=== PATIENT | female | born 1995 | race Caucasian/White ===

== ENCOUNTER 2020-04-07 08:43 | Outpatient (CLI) | payer BC, SELFPAY ==
--- NOTE | ~2020-04-07 | MR_ITS ---
EXAMINATION: MR brain/brain stem wo con DATE: 04/07/2020 09:11 INDICATION: New dated persistent headaches. TECHNIQUE: Magnetic resonance imaging (MRI) of the brain and brainstem was performed without intraven ous contrast. Sequences included sagittal and axial T1-weighted FSE, axial diffusion-weighted FS EPI, axial T2*-weighted GRE, axial T2-weighted FLAIR Propeller, and axial T2-weighted Propeller. Apparent diffusion coefficient (ADC) maps were created. COMPARISON: None. FINDINGS: There is no intracranial hemorrhage, acute infarction, or abnormal intracranial mass lesion . The ventricles are normal in size. The paranasal sinuses are clear. The orbits are normal. The mast oid air cells are normal. IMPRESSION: 1. Normal brain. Reviewed, dictated and finalized at location A. ENT PARTS CUTTER MACHINE IMPRESSION: 1. Normal brain.
== END 2020-04-07 08:44 ==
PROVIDERS: PCP Family Medicine; Visit Provider Family Medicine
DX: G44.52 New daily persistent headache (NDPH) (principal)
CPT/HCPCS: 70551

== ENCOUNTER 2020-04-14 11:28 | Outpatient (CLI) | payer BC, SELFPAY ==
--- NOTE | ~2020-04-14 | XR_ITS ---
XR thoracic spine 2V DATE: 04/14/2020 12:09 INDICATION: Thoracic pain TECHNIQUE: Standing AP, lateral and swimmer views COMPARISON: None FINDINGS: Minimal levoscoliosis of the thoracic spine. No fracture or bone destruction. The thoracic pedicles are intact. Thoracic interspaces are preserved. No paraspinal soft tissue thickening. IMPRESSION: Minimal levoscoliosis; otherwise negative Reviewed, dictated and finalized at location B. CTOR OF RETENTION
--- NOTE | ~2020-04-14 | XR_ITS ---
XR lumbar spine 2-3V DATE: 04/14/2020 12:09 INDICATION: Low back pain TECHNIQUE: Standing AP and lateral and coned lateral lumbosacral views COMPARISON: None FINDINGS: Mild levoscoliosis of thoracolumbar spine. No fracture or bone destruction or spondylolisthesis. The lumbar pedicles are intact. Lumbar and lumb osacral interspaces are well preserved. The included portions of the sacroiliac joints appear normal. IMPRESSION: Mild levoscoliosis; otherwise negative Reviewed, dictated and finalized at location B. R GIFTS MANAGER
--- NOTE | ~2020-04-14 | XR_ITS ---
XR_CERV2-3V_CR DATE: 04/14/2020 12:09 INDICATION: Migraine headaches, neck pain. Thoracic and lumbar spine pain. Bilateral sacroiliac pain. TECHNIQUE: Standing AP, lateral, open-mouth views COMPARISON: None FINDINGS: There is reversal of cervical curvature. C1 and C2 are normally aligned and the odontoid process is intact. No fracture or dislocation or lock ed facet or prevertebral soft tissue swelling. Cervical interspaces are well preserved. IMPRESSION: Reversal of cervical curvature Reviewed, dictated and finalized at Location A. Reviewed, dictated and finalized at location B. ICAL CARE CNS
--- NOTE | ~2020-04-14 | XR_ITS ---
XR pelvis 1-2V DATE: 04/14/2020 12:09 INDICATION: Bilateral sacroiliac pain TECHNIQUE: Standing AP pelvis view COMPARISON: None FINDINGS: No pelvic fracture or bone destruction. The pubic symphysis and sacral iliac joints appear normal. Hip joint spaces are symmetric and well preserved. No fracture or dislocation is noted at eit her hip. Mild levoscoliosis of the lumbar spine. IMPRESSION: Negative pelvis Reviewed, dictated and finalized at location B. ERENCE SERVICES DIRECTOR IMPRESSION: Negative pelvis
== END 2020-04-14 11:29 ==
PROVIDERS: Visit Provider Chiropractor
DX: M54.2 Cervicalgia (principal); G43.909 Migraine, unspecified, not intractable, without status migrainosus; M54.5 Low back pain; M41.86 Other forms of scoliosis, lumbar region; M41.84 Other forms of scoliosis, thoracic region; M53.82 Other specified dorsopathies, cervical region
CPT/HCPCS: 72040; 72070; 72100; 72170

== ENCOUNTER 2020-05-20 23:00 | Emergency (ER) | payer SELFPAY ==
[2020-05-20 23:03] VITALS: BP 117/84; PULSE 108; RESP 18; TEMP 36.4; O2SAT 95
[2020-05-21] MEDS: LIDOCAINE HCL 1% LOCAL INJ 20 ML VIAL 10 ML INFILTRATE
--- NOTE | 2020-05-21 00:02 | ED.GENADULT ---
HPI - General Adult General Chief complaint: Skin/Abscess/Foreign Body Stated complaint: abscess - down there Time Seen by Provider: 05/20/20 23:21 History of Present Illness HPI narrative: Patient is a 24-year-old female who presents the emergency department with chief complaint of perineal abscess patient reports she had a 4-day history of swelling in the perineal body area patient reports that it is swollen tender and painful to touch. The patient notes she had a little bit of bloody drainage from the area patient denies fever denies chills Related Data Home Medications Medication Instructions Recorded Confirmed amitriptyline 05/20/20 nadolol 05/20/20 valacyclovir 05/20/20 Allergies Allergy/AdvReac Type Severity Reaction Status Date / Time No Known Allergies Allergy Verified 05/20/20 23:05 Review of Systems Review of Systems: Narrative: A 10 system review of systems was completed on the patient and is negative except for what is stated in the HPI. Nursing and ancillary documentation was reviewed. [facility] Social History Social History Gender identity (if verbalized by the patient): Female Sexual Orientation (if Verbalized by the Patient): Straight or Heterosexual Comments Patient denies past medical history Social history the patient smoke cigarettes Exam Narrative: Exam Narrative: GENERAL: Well-appearing, well-nourished, and in no acute distress. HEAD: Normocephalic, atraumatic. EYES: PERRLA and EOMI. ENT: Nares clear, no rhinorrhea or epistaxis. Mucous membranes moist. NECK: Supple. CHEST: Clear to auscultation. No respiratory distress. HEART: Regular rate and rhythm. No murmur heard. Normal peripheral pulses. ABDOMEN: Soft, nontender, nondistended, normal active bowel sounds. : There is an abscess present in the perineal body area EXTREMITIES: Normal range of motion. No edema. SKIN: Warm, dry, no rash. NEURO: No focal deficits. Alert and oriented x3. PSYCH: Normal mood and affect. Course Vital Signs Vital signs: Vital Signs Temperature 36.4 C 05/20/20 23:03 Pulse Rate 108 H 05/20/20 23:03 Respiratory Rate 18 05/20/20 23:03 Blood Pressure 117/84 05/20/20 23:03 Pulse Oximetry 95 05/20/20 23:03 Temperature 36.4 C 05/20/20 23:03 Pulse Rate 108 H 05/20/20 23:03 Respiratory Rate 18 05/20/20 23:03 Blood Pressure 117/84 05/20/20 23:03 Pulse Oximetry 95 05/20/20 23:03 Procedures Abscess I/D other: Date of Incision: 05/21/20 Time of Incision: 00:05 Local Anesthetic: lidocaine 1% Amount of anesthesia used (mL): 5 Technique: incised with #11 blade Amount of fluid expressed (mL): 5 Packing used?: none I&D Results: Pus and Blood Complications: pain Abcess I&D Additional Comments: A perineal body abscess was incised and drained using an 11 blade was approximately 5 mL of purulent material expressed from the wound Medical Decision Making Vital Signs Vital Signs: Vital Signs Temperature 36.4 C 05/20/20 23:03 Pulse Rate 108 H 05/20/20 23:03 Respiratory Rate 18 05/20/20 23:03 Blood Pressure 117/84 05/20/20 23:03 Pulse Oximetry 95 05/20/20 23:03 Temperature 36.4 C 05/20/20 23:03 Pulse Rate 108 H 05/20/20 23:03 Respiratory Rate 18 05/20/20 23:03 Blood Pressure 117/84 05/20/20 23:03 Pulse Oximetry 95 05/20/20 23:03 Discharge Plan Discharge Clinical Impression: Abscess Patient Disposition: Home, Self-Care Condition: Stable Instructions: Antibiotic Form, Abscess (ED), Sitz Bath (DC), Abscess Incision and Drainage (DC) Prescriptions: New clindamycin HCl 300 mg capsule 300 mg PO Q6H 7 Days Qty: 28 RF: 0 hydrocodone-acetaminophen 5-325 mg tablet 1 tablet PO Q6H PRN (Reason: pain) 3 Days Qty: 12 RF: 0 No Action valacyclovir 1 gram tablet RF: 0 amitriptyline 25 mg tablet RF: 0 nadolol 40 mg tablet
[2020-05-21] MEDS: CLINDAMYCIN HCL 150 MG CAP 300 MG PO (00:16)
[2020-05-21] MEDS: HYDROcodone/acetaminophen (*CRX) 5-325 MG TABLET 1 TAB PO (00:16)
== END 2020-05-21 00:24 | disposition home or self-care (01) ==
PROVIDERS: Emergency Provider Emergency Medicine; PCP Family Medicine
DX: K61.0 Anal abscess (principal); F17.210 Nicotine dependence, cigarettes, uncomplicated
CPT/HCPCS: 46050; 99283; A9270

== ENCOUNTER 2020-05-30 02:13 | Emergency (ER) | payer OTHER, SELFPAY ==
[2020-05-30 02:15] VITALS: BP 119/63; PULSE 100; RESP 16; TEMP 37.6; O2SAT 97
--- NOTE | 2020-05-30 02:42 | ED.NAVMDI ---
HPI - Nausea/Vomiting/Diarrhea General Chief complaint: Nausea/Vomiting/Diarrhea Stated complaint: n/v Time Seen by Provider: 05/30/20 02:30 Source: patient Mode of arrival: ambulatory Limitations: no limitations History of Present Illness HPI Narrative: Patient is a 24-year-old female complaining of nausea vomiting, epigastric pain and body aches after receiving the [employer] Covid shot yesterday. Patient states that her vomitus is nonbilious nonbloody. Patient denies any chest pain, shortness of breath, diarrhea, urinary symptoms, fever or chills. Associated abdominal pain: Yes Location of pain: diffuse Severity: moderate Quality: aching Exacerbating factors: none Relieving factors: none Related Data Home Medications Medication Instructions Recorded Confirmed amitriptyline 05/20/20 nadolol 05/20/20 valacyclovir 05/20/20 Allergies Allergy/AdvReac Type Severity Reaction Status Date / Time No Known Allergies Allergy Verified 05/20/20 23:05 Review of Systems Review of Systems: All systems reviewed & are unremarkable except as noted in HPI and below Constitutional: Constitutional: Denies chills, Denies excessive sweating, Denies fatigue, Denies fever(s), Denies headache(s), Denies lethargy, Denies malaise, Denies weakness and Denies weight loss Eyes: Eyes: Denies blurry vision, Denies change in vision and Denies loss of vision ENT: Denies dizziness, Denies ear discharge, Denies headache(s), Denies lip swelling, Denies epistaxis, Denies nasal congestion, Denies neck pain, Denies throat swelling and Denies tongue swelling Cardiovascular: Cardiovascular: Denies chest pain, Denies chest pain at rest, Denies chest pain with activity, Denies diaphoresis, Denies rapid heart rate, Denies edema, Denies irregular heart rhythm, Denies lightheadedness, Denies palpitations, Denies dyspnea and Denies dyspnea on exertion Respiratory: Respiratory: Denies chest congestion, Denies cough, Denies hemoptysis, Denies dyspnea and Denies dyspnea on exertion Gastrointestinal: Gastrointestinal: Denies melena, Denies hematochezia, Denies diarrhea and Denies hematemesis Musculoskeletal: Musculoskeletal: Denies abnormal gait, Denies deformity, Denies joint swelling, Denies limited range of motion, Denies neck pain and Denies numbness Neurologic: Denies Abnormal speech present, Denies abnormal gait, Denies confusion, Denies dizziness, Denies headache(s), Denies focal weakness, Denies loss of vision, Denies numbness, Denies Other visual disturbances, Denies Sensory deficit (Neuro) and Denies weakness Psychiatric: Psychiatric: Denies confusion, Denies depression, Denies auditory hallucinations, Denies homicidal ideation and Denies suicidal ideation Endocrine: Endocrine: Denies cold intolerance, Denies excessive sweating, Denies fatigue, Denies heat intolerance and Denies palpitations Hematologic/Lymphatic: Hematologic/Lymphatic: Denies easy bleeding and Denies easy bruising Allergic/Immunologic: Allergic/Immunologic: Denies lip swelling, Denies throat swelling and Denies tongue swelling PMFSH Social History Social History Gender identity (if verbalized by the patient): Female Comments Past medical history: None Family history: Noncontributory Social history: Non-smoker no EtOH or drug use Exam Const: General: cooperative, healthy appearing, comfortable, no acute distress, well developed, alert and awake; No confusion Orientation/consciousness: oriented to person, oriented to place, oriented to time, patient oriented x3 and No confusion Limitations: no limitations HENMT: Head: normal to inspection, normocephalic and atraumatic Ears: hearing grossly normal bilaterally, TM normal on the right and TM normal on the left General nose exam: Normal external nose present, Normal nares present and No nasal discharge present Face and sinus: normal facial exam Mouth: Yes Normal o
[2020-05-30] MEDS: ONDANSETRON INJ 4 MG/2 ML VIAL IV PUSH (02:44)
[2020-05-30] MEDS: SODIUM CHLORIDE 0.9% IV 1,000 ML 999 ML IV CONT (02:44)
[2020-05-30 03:00] LABS: Basophils Percent Auto 0.1 % (0.2-1.2); Eosinophils Percent Auto 0.1 % (0-4.4); Hematocrit 36.3 % (37.0-47.0); Immature Granulocyte Absolute 0.03 K/mm3 (0.00-0.031); Immature Granulocyte Percent A 0.4 % (0-0.5); Lymphocytes Absolute Auto 0.46 K/mm3 (0.9-3.2); Lymphocytes Percent Auto 6.4 % (18.3-44.2); Mean Corpuscular HGB Conc 35.8 g/dl (32-36); Mean Corpuscular Hemoglobin 30.6 pg (26-34); Mean Corpuscular Volume 85.4 fl (80-100); Mean Platelet Volume 9.9 fl (7.4-10.4); Monocytes Absolute Auto 0.5 K/mm3 (0.1-0.6); Monocytes Percent Auto 6.9 % (2.6-8.5); Neutrophils Absolute Auto 6.2 K/mm3 (1.3-6.7); Neutrophils Percent Auto 86.1 % (45.5-73.1); Platelet Count Result 173 k/mm3 (150-375); Red Blood Count 4.25 M/mm3 (4.2-5.4); Red Cell Distribution Width 11.7 % (11.5-14.5); White Blood Count 7.2 K/mm3 (4.5-10.0)
[2020-05-30 03:15] LABS: Alanine Aminotransferase 33 U/L (4-35); Albumin Level 4.3 g/dL (3.5-5.1); Alkaline Phosphatase 49 U/L (38-126); Anion Gap 10 mmol/L (8-16); Aspartate Amino Transferase 37 U/L (14-36); Bilirubin,Total 1.1 mg/dL (0.2-1.3); Blood Urea Nitrogen 7 mg/dL (7-17); Calcium 8.7 mg/dL (8.4-10.2); Carbon Dioxide 21 mmol/L (22-30); Chloride 103 mmol/L (98-107); Estimated CRCL calculation 124 ml/min; Estimated Glomerular Filt Rate > 60; Glucose 101 mg/dL (65-105); Lipase 73 U/L (23-300); Potassium 3.7 mmol/L (3.4-5.0); Sodium 134 mmol/L (137-145)
[2020-05-30 03:21] LABS: Add Urine Microscopic? YES; Appearance Urine Cloudy (Clear); Bilirubin Urine Negative (Negative); Blood Urine Negative (Negative); Color Urine Yellow (Yellow); Glucose Urine UA Negative (Negative); Ketones Urine Negative (Negative); Leukocyte Esterase Ur Negative LEU/UL (Negative); Mucus Urine Moderate /lpf; Nitrate Urine Negative (Negative); Protein Urine 1+ mg/dL (Negative); Specific Grav Ur 1.024 (1.001-1.035); Squamous Epithelial Cell Urine Few /hpf (Few); Urobilinogen Urine Negative mg/dL (<2.0); WBC Urine 0-3 /hpf
[2020-05-30 04:14] VITALS: BP 117/66; PULSE 89; RESP 18; O2SAT 99
[2020-05-30] MEDS: PROMETHAZINE HCL 25 MG/ML AMPUL 12.5 MG IV PUSH (04:53)
[2020-05-30] MEDS: SODIUM CHLORIDE 0.9% IV 50 ML 200 ML (04:53)
[2020-05-30 05:32] VITALS: BP 118/64; PULSE 69; RESP 18; O2SAT 98
== END 2020-05-30 05:57 | disposition home or self-care (01) ==
PROVIDERS: Emergency Provider Emergency Medicine; PCP Family Medicine
DX: O21.0 Mild hyperemesis gravidarum (principal); Z3A.00 Weeks of gestation of pregnancy not specified
CPT/HCPCS: 36415; 80053; 81001; 81025; 83690; 84702; 85025; 96361; 96374; 96375; 99284; J2405; J2550; J7030

== ENCOUNTER 2020-12-14 12:16 | Emergency (ER) | payer OTHER, SELFPAY ==
[2020-12-14 12:29] VITALS: BP 122/68; PULSE 68; RESP 18; TEMP 36.6; O2SAT 100
--- NOTE | 2020-12-14 12:39 | ED.GENADULT ---
HPI - General Adult General Chief complaint: Urogenital-Female Stated complaint: UTI Source: patient Mode of arrival: ambulatory Limitations: no limitations History of Present Illness HPI narrative: 25 y/o female. PMHx None reported. Presents to [facility] today with acute complaints of urinary frequency and dysuria for the past 48 hours. Client tells me she has had infrequent UTI's historically, and her manifestations are similar. Denies fever. No abdominal pain, flank pain, N/V, hematuria. No pelvic pain or vaginal discharge. She has not yet sought out medical evaluation unitl now, today. She is without additional acute c/o illness upon PE. Related Data Home Medications Medication Instructions Recorded Confirmed etonogestrel [Nexplanon] 1 implant SUBDERMAL ONCE 12/14/20 12/14/20 Allergies Allergy/AdvReac Type Severity Reaction Status Date / Time No Known Allergies Allergy Verified 12/14/20 12:38 Review of Systems Review of Systems: CONSTITUTIONAL: Denies fever, chills, sweats. EYES: Denies visual changes, redness, discharge. ENT: Denies rhinorrhea, congestion, sore throat, otalgia. CARDIOVASCULAR: Denies chest pain, palpitations, edema. RESPIRATORY: Denies dyspnea, wheezing, cough GASTROINTESTINAL: Denies abdominal pain, nausea, vomiting, diarrhea. GENITOURINARY: Positive frequency & dysuria. No hematuria, abnormal discharge SKIN: Denies rash or itching. MUSCULOSKELETAL: Denies acute back pain, joint pain, or myalgia. NEUROLOGIC: Denies numbness, or focal weakness. PSYCHIATRIC: Denies anxiety or depression. All systems reviewed & are unremarkable except as noted in HPI and below PMFSH Social History Social History Gender identity (if verbalized by the patient): Female Sexual Orientation (if Verbalized by the Patient): Straight or Heterosexual Exam Narrative: GENERAL: This is a well-nourished, well-developed adult, in no apparent distress. HEAD: normocephalic, atraumatic. EYES: PERRL. Sclera clear/white. EARS: External ears normal. NOSE: External nose normal. THROAT: Mucous membranes moist. NECK: Neck supple. CARDIOVASCULAR: Regular rate and rhythm. RESPIRATORY: Clear to auscultation. Breath sounds equal bilaterally. GASTROINTESTINAL: Abdomen soft, non-tender, nondistended. Bowel sounds are active. No guarding. No CVA tenderness. SKIN: warm, intact. NEURO: Alert, active, and age appropriate. No focal neurologic deficits. Course Vital Signs Vital signs: Vital Signs Temperature 36.6 C 12/14/20 12:29 Pulse Rate 68 12/14/20 12:29 Respiratory Rate 18 12/14/20 12:29 Blood Pressure 122/68 12/14/20 12:29 Pulse Oximetry 100 12/14/20 12:29 Temperature 36.6 C 12/14/20 12:29 Pulse Rate 68 12/14/20 12: Respiratory Rate 18 12/14/20 12:29 Blood Pressure 122/68 12/14/20 12:29 Pulse Oximetry 100 12/14/20 12:29 Medical Decision Making MDM Narrative Medical decision making narrative: -Urinalysis reveals positive Nitrites consistent with urinary tract infection, uncomplicated. -Afebrile, non-tachycardic, and appears non-toxic. -Start oral Bactrim DS as directed, urine has odalys sent for additional Cx analysis. -Fluids, good female hygiene. -PCP F/U 1 WK. -OP POC, AVS, & Medication instructions reviewed. -ER W/Emergent health status changes. Pt agrees. Differential Diagnosis Differential Diagnosis: Differential Diagnosis: Consideration of the following conditions may be warranted for the presenting problem, they are not final diagnoses: Likely UTI, Cystitis, Nephrolithiasis, bacterial vaginosis, Nephritis, candidiasis, vaginitis, pyelonephritis, epididymitis, STD, or other. Medical Records Medical records reviewed: Yes I reviewed the external patient's medical records. Vital Signs Vital Signs: Vital Signs Temperature 36.6 C 12/14/20 12:29 Pulse Rate 68 12/14/20 12:29
== END 2020-12-14 12:43 | disposition home or self-care (01) ==
PROVIDERS: Emergency Provider Nurse Practitioner Adult Health; PCP Family Medicine
DX: N39.0 Urinary tract infection, site not specified (principal)
CPT/HCPCS: 81003; 87086; 99213; G0463

== ENCOUNTER 2020-12-25 11:00 | Emergency (ER) | payer OTHER, SELFPAY ==
[2020-12-25 11:24] VITALS: BP 114/80; PULSE 87; RESP 16; TEMP 36.8; O2SAT 100
--- NOTE | 2020-12-25 11:43 | ED.ABDPAIN ---
HPI - Abdominal Pain General Chief Complaint: Abdominal Pain Stated Complaint: Abdominal Pain History of Present Illness HPI narrative: This is a 25-year-old female that presents with abdominal pain nausea vomiting and diarrhea states that it started approximately 2 AM. Patient informs me tht she believes this is nothing severe she is just sick and needs a note for work. Related Data Home Medications Medication Instructions Recorded Confirmed etonogestrel [Nexplanon] 1 implant SUBDERMAL ONCE 12/14/20 12/14/20 Allergies Allergy/AdvReac Type Severity Reaction Status Date / Time No Known Allergies Allergy Verified 12/14/20 12:38 Review of Systems Review of Systems: nausea and vomiting with abdominal pain All systems reviewed & are unremarkable except as noted in HPI and below PMFSH Social History Social History Gender identity (if verbalized by the patient): Female Sexual Orientation (if Verbalized by the Patient): Straight or Heterosexual Comments At time as signature, I have reviewed and agree with nursing past medical, social, surgical and family history. Please see nursing chart for further information. There is no relevant family history pertinent to the presenting complaint. Exam Narrative: GENERAL:Well-appearing, well-nourished, and in no acute distress. HEAD:Normocephalic, atraumatic. EYES: PERRLA ENT: Nares clear, no rhinorrhea or epistaxis. Mucous membranes moist. NECK: Supple. CHEST: Clear to auscultation No respiratory distress. HEART: Regular rate and rhythm. Normal peripheral pulses. ABDOMEN: Soft, distended, normal active bowel sounds.( patient informs me that she believes it is just a stomach bug and I do not need to continue to press on her stomach) EXTREMITIES: Normal range of motion. No edema. SKIN: Warm, dry, no rash. NEURO: No focal deficits. Alert and oriented x3. Course [employer]/PA Physician Supervision xray say no acute cardiopulmonary abnormality or evidence of displaced fracture. Vital Signs Vital signs: Vital Signs Temperature 98.2 F 12/25/20 11:24 Pulse Rate 87 12/25/20 11:24 Respiratory Rate 16 12/25/20 11:24 Blood Pressure 114/80 12/25/20 11:24 Pulse Oximetry 100 12/25/20 11:24 Temperature 98.2 F 12/25/20 11:24 Pulse Rate 87 12/25/20 11:24 Respiratory Rate 16 12/25/20 11:24 Blood Pressure 114/80 12/25/20 11:24 Pulse Oximetry 100 12/25/20 11:24 MDM - Abdominal Pain Differential Diagnosis Differential diagnosis: Likely abdominal pain, acute appendicitis, gastroenteritis and small bowel obstruction Discharge Plan Discharge Clinical Impression: Gastroenteritis Patient Disposition: Home, Self-Care Condition: Stable Instructions: Antibiotic Form, Gastroenteritis (ED), Acute Nausea and Vomiting (ED), Abdominal Pain (ED) Additional Instructions: No serious cause of abdominal pain is found at this time. It is important to carefully watch for changes in the abdominal pain that might suggest a serious condition. See your doctor or return to the emergency department immediately if your condition gets worse. These symptoms suggest serious causes of abdominal pain: Your unable to walk easily or walking in a bent over position. You are experiencing pain in the right lower part of her abdomen. Stepping or jumping results in severe pain. The abdomen is hard and painful when you press on it. There is severe abdominal pain when coughing. You are vomiting or gagging. Prescriptions: New ibuprofen 600 mg tablet 600 mg PO TID PRN (Reason: pain) Qty: 20 RF: 0 ondansetron 4 mg tablet,disintegrating 4 mg PO Q8H PRN (Reason: nausea and vomiting) Qty: 10 RF: 0 No Action Nexplanon 68 mg Implant 1 implant SUBDERMAL ONCE RF: 0 sulfamethoxazole-trimethoprim [Bactrim DS] 800-160 mg tablet 1 tablet PO Q12H 10 Days Qty: 20 RF: 0 Follow-up/Referrals: Yan Avila
== END 2020-12-25 12:55 | disposition home or self-care (01) ==
PROVIDERS: Emergency Provider Nurse Practitioner Family; PCP Family Medicine
DX: K52.9 Noninfective gastroenteritis and colitis, unspecified (principal)
CPT/HCPCS: 99213; G0463

== ENCOUNTER 2021-03-08 17:56 | Emergency (ER) | payer OTHER, SELFPAY ==
[2021-03-08 18:04] VITALS: BP 123/76; PULSE 102; RESP 20; TEMP 36.8; O2SAT 98
--- NOTE | 2021-03-08 18:27 | ED.GENADULT ---
HPI - General Adult General Chief complaint: Abdominal Pain Stated complaint: Nausea,Abdominal Pain Time Seen by Provider: 03/08/21 18:09 Source: patient and RN notes reviewed Mode of arrival: ambulatory Limitations: no limitations History of Present Illness HPI narrative: Patient presents today complaining of nausea, acid reflux, burning and burping up my throat , and watery diarrhea. The nausea and epigastric burning started this morning and the watery diarrhea started approximately 3 hours prior to arrival. Denies fever or any URI symptoms. Denies any blood or mucus in the stool. She has been taking Tums and Pepto-Bismol without relief. Reports son did vomit yesterday at home. MD complaint: Nausea, acid reflux, diarrhea Related Data Home Medications Medication Instructions Recorded Confirmed etonogestrel [Nexplanon] 1 implant SUBDERMAL ONCE 12/14/20 03/08/21 Allergies Allergy/AdvReac Type Severity Reaction Status Date / Time No Known Allergies Allergy Verified 12/14/20 12:38 Review of Systems Review of Systems: CONSTITUTIONAL: Denies body aches, fever, chills, or sweats. EYES: Denies visual changes, redness, or discharge. ENT: Denies rhinorrhea, congestion, sore throat, or otalgia. CARDIOVASCULAR: Denies chest pain, palpitations, or edema. RESPIRATORY: Denies cough or dyspnea. GASTROINTESTINAL: Denies abdominal pain, vomiting.+ Nausea, diarrhea, epigastric and throat burning GENITOURINARY: Denies dysuria or hematuria. SKIN: Denies rash, itching, or wounds. MUSCULOSKELETAL: Denies back pain, joint pain, or myalgia. NEUROLOGIC: Denies headache, numbness, tingling, or weakness. PSYCH: Denies depression or anxiety. PMFSH Social History Social History Gender identity (if verbalized by the patient): Female Sexual Orientation (if Verbalized by the Patient): Straight or Heterosexual Comments At time of signature, I have reviewed and agree with nursing past medical, surgical, social and family history unless otherwise noted. Please see nursing chart for further information. There is no relevant family history pertinent to the presenting complaint Exam Narrative: GENERAL: Ill-appearing, well-nourished, and in no acute distress. HEAD: Normocephalic, atraumatic. EYES: EOMI. No redness or drainage. Conjunctivae normal. ENT: Mucous membranes pink and moist. NECK: Normal AROM. Supple. No lymphadenopathy. CHEST: No respiratory distress. Clear to auscultation. HEART: Regular rate and rhythm. No murmur appreciated. Normal peripheral pulses. ABDOMEN: Soft, nondistended, normal active bowel sounds. +Epigastric tenderness MUSCULOSKELETAL: No bony tenderness. EXTREMITIES: Normal range of motion. No edema. SKIN: Warm, dry, no rash. Capillary refill normal. Normal skin turgor. NEURO: No focal deficits. Alert and oriented x3. Gait steady. PSYCH: Normal affect. No signs of depression or anxiety. Course Course Emergency Course: Nausea improved with Zofran. Will prescribe some omeprazole and Carafate for acid reduction. Anticipatory guidance given. Level of Care: Express Care Visit Vital Signs Vital signs: Vital Signs Temperature 98.2 F 03/08/21 18:04 Pulse Rate 102 H 03/08/21 18:04 Respiratory Rate 20 03/08/21 18:04 Blood Pressure 123/76 03/08/21 18:04 Pulse Oximetry 98 03/08/21 18:04 Temperature 98.2 F 03/08/21 18:04 Pulse Rate 102 H 03/08/21 18:04 Respiratory Rate 20 03/08/21 18:04 Blood Pressure 123/76 03/08/21 18:04 Pulse Oximetry 98 03/08/21 18:04 Reviewed. Pt has been instructed to follow up with her PCP regarding her elevated blood pressure today. Medical Decision Making Differential Diagnosis Differential Diagnosis: Viral syndrome, gastroenteritis, food poisoning, gastric ulcer, gastritis, GERD Vital Signs Vital Signs: Vital Signs Temperature 98.2 F 03/08/21 18:04 Pulse Rate 102 H 03/08/21 1
[2021-03-08] MEDS: ONDANSETRON HCL ODT 4 MG TABLET 8 MG SUBLINGUAL (18:29)
== END 2021-03-08 19:15 | disposition home or self-care (01) ==
PROVIDERS: Emergency Provider Nurse Practitioner; PCP Family Medicine
DX: B34.9 Viral infection, unspecified (principal)
CPT/HCPCS: 99213; A9270; G0463

== ENCOUNTER 2021-06-12 13:27 | Emergency (ER) | payer OTHER, SELFPAY ==
[2021-06-12 13:36] VITALS: BP 130/90; PULSE 109; RESP 16; TEMP 35.7; O2SAT 99
--- NOTE | 2021-06-12 13:44 | ED.FEMALEGU ---
HPI - Female Genitourinary General Chief complaint: Urogenital-Female Stated complaint: UTI Time Seen by Provider: 06/12/21 13:45 Source: patient, RN notes reviewed and old records reviewed Mode of arrival: ambulatory Limitations: no limitations History of Present Illness HPI Narrative: 25-year-old female presents to the with vaginal discharge and a rash in the lex Area. Has a history of herpes and states that she ordered her medication but it is 4 days late. No abdominal pain or chest pain. No burning with urination. No chances of , states she does not have sex. Related Data Home Medications Medication Instructions Recorded Confirmed etonogestrel [Nexplanon] 1 implant SUBDERMAL ONCE 12/14/20 03/08/21 Allergies Allergy/AdvReac Type Severity Reaction Status Date / Time latex Allergy Verified 05/18/21 16:19 Review of Systems Review of Systems: All systems reviewed & are unremarkable except as noted in HPI and below Constitutional: Constitutional: Reports no additional constitutional complaints, Denies chills and Denies fatigue Eyes: Eyes: Reports no additional eye complaints ENT: Reports system reviewed and no additional complaints, except as documented Cardiovascular: Cardiovascular: Reports no additional cardiovascular complaints Respiratory: Respiratory: Reports no additional respiratory complaints Gastrointestinal: Gastrointestinal: Reports no additional gastrointestinal complaints, Denies abdominal pain, Denies diarrhea, Denies nausea and Denies vomiting Genitourinary: Genitourinary: Reports as per HPI, Denies hematuria, Denies nocturia, Reports genital lesions, Denies dysuria, Denies flank pain and Reports vaginal discharge Musculoskeletal: Musculoskeletal: Reports no additional musculoskeletal complaints and Denies back pain Integumentary/Breasts: Skin/Breast: Reports system reviewed and no additional complaints, except as docu Neurologic: Reports system reviewed and no additional complaints, except as documented Psychiatric: Psychiatric: Reports no additional psychiatric complaints Allergic/Immunologic: Allergic/Immunologic: Reports no additional allergic/immunologic complaints [facility] Past Medical History Medical History Herpes simplex Social History Social History Gender identity (if verbalized by the patient): Female Sexual Orientation (if Verbalized by the Patient): Straight or Heterosexual Comments At the time of my signature, I reviewed and agree with the nursing past medical, surgical, social, and family history. There is no relevant family history pertinent to the patient complaint. Exam Const: General: healthy appearing, no acute distress and alert Nutritional Appearance: well nourished Orientation/consciousness: patient oriented x3 Limitations: no limitations HENMT: Head: normal to inspection Ears: external ears normal Eyes: Conjunctivae: conjunctivae normal Pupils: Equal, round and reactive pupils present Neck: Neck: normal visual inspection, no lymphadenopathy and no meningeal signs Chest: Chest palpation & inspection: normal inspection of the chest and abnormal inspection of the chest Resp: Effort & Inspection: normal respiratory effort Auscultation: clear to auscultation bilaterally Cardio: Rate: regular rate Rhythm: regular rhythm GI: GI Palp: Yes Soft to palpation : Speculum Exam - Cervix: normal appearance of the cervix, Cervical os closed and Abnormal cervical discharge present white and malodorous Other: Vesicular rash noted lex-/rectal area Back/Spine/Pelvis: Back: no CVA tenderness Skin: General skin exam: normal color Rashes: no rashes Wounds: no wounds Neuro: General: patient oriented x3, moves all extremities, no meningeal signs and no focal motor deficits Cranial nerves: Yes Equal, round and reactive pupils present Speech: norm
--- NOTE | 2021-06-12 13:45 | PC.NURSE ---
given gown and sheet.
== END 2021-06-12 14:04 | disposition home or self-care (01) ==
PROVIDERS: Emergency Provider Nurse Practitioner
DX: N76.0 Acute vaginitis (principal); B00.9 Herpesviral infection, unspecified
CPT/HCPCS: 87070; 99214; G0463

== ENCOUNTER 2021-09-21 16:47 | Emergency (ER) | payer OTHER, SELFPAY ==
--- NOTE | ~2021-09-21 | XR_ITS ---
XR abdomen/kub 1V 09/21/2021 17:23 INDICATION: Abdomen pain with diarrhea TECHNIQUE: KUB COMPARISON: None FINDINGS: Bowel gas pattern is normal. There is no evidence of free air, mass, organomegaly, ascites or obstruction. No abnormal calculi are seen. The bones appear intact. Mild levoscoliosis of the l umbar spine. IMPRESSION: 1: No acute abdominal abnormality identified. Reviewed, dictated and finalized at location A.
[2021-09-21 16:54] VITALS: BP 127/78; PULSE 94; RESP 16; TEMP 36.4; O2SAT 100
--- NOTE | 2021-09-21 16:55 | ED.ABDPAIN ---
HPI - Abdominal Pain General Chief Complaint: Abdominal Pain Stated Complaint: Abdominal Pain Time Seen by Provider: 09/21/21 17:04 Source: patient and RN notes reviewed Mode of arrival: ambulatory Limitations: no limitations History of Present Illness HPI narrative: 26-year-old female presents with concern for ongoing diarrhea. She reports liquid diarrhea for the last 3 weeks. She reports that she has several diarrhea stools every time she eats a meal. Reports diarrhea anytime from 5-15 times daily. Reports over the last 2 days the diarrhea has been clear liquid. Reports today it began getting darker in color. She reports abdominal cramping. She denies fever, nausea, vomiting. She also reports some vaginal dryness and mild labial itching. She denies any abnormal vaginal discharge. MD elicited complaint: other (Diarrhea) Related Data Allergies Allergy/AdvReac Type Severity Reaction Status Date / Time latex Allergy Other Verified 09/21/21 16:51 Review of Systems Review of Systems: CONSTITUTIONAL: Denies malaise, chills, sweats, or fever. ENT: Denies rhinorrhea, congestion, sinus pain, otalgia or sore throat. CARDIOVASCULAR: Denies chest pain, palpitations, or edema. RESPIRATORY: Denies cough or dyspnea. GASTROINTESTINAL: Denies abdominal pain, nausea, vomiting, bloody, or mucous stools. Reports copious diarrhea and abdominal cramping GENITOURINARY: Denies dysuria or hematuria. Reports vaginal dryness and itching MUSCULOSKELETAL: Denies myalgia. NEUROLOGIC: Denies headache. All systems reviewed & are unremarkable except as noted in HPI and below PMFSH Past Medical History Medical History Herpes simplex Social History Social History Gender identity (if verbalized by the patient): Female Sexual Orientation (if Verbalized by the Patient): Straight or Heterosexual Comments At time of signature, agree with nursing past medical, surgical, social and family history. There is no relevant family history pertinent to the presenting complaint Exam Narrative: GENERAL: Well-appearing, well-nourished, and in no acute distress. HEAD: Normocephalic, atraumatic. EYES: PERRLA, conjunctivae clear, and EOMI. ENT: Nares clear, turbinates pink, no rhinorrhea or epistaxis. Mucous membranes moist. Oropharynx without edema, erythema, or lesions. Tonsils not enlarged and without exudate. NECK: Supple. No lymphadenopathy CHEST: Speaks in full sentences. No respiratory distress. HEART: Regular rate and rhythm. ABDOMEN: Soft, flat, nondistended. Mild bilateral lower quadrant tenderness. No guarding, rebound tenderness, or rigidity. No pulsatile masses. Bowel sounds present in all four quadrants. No organomegaly. Negative Wells?s sign. No periumbilical tenderness. No Supra public tenderness or distension. SKIN: Warm, dry, no rash. NEURO: Alert and oriented x3. PSYCH: Normal mood and affect Course Course Emergency Course: Patient is aware of diagnosis, understands and agrees to treatment plan. Anticipatory guidance given. Patient agrees to follow-up as directed and is aware of reasons to seek care at the emergency department. Portions of this record may have been created with voice recognition software Level of Care: Express Care Visit Vital Signs Vital signs: Reviewed. MDM - Abdominal Pain MDM Narrative Medical decision making narrative: Exam findings and imaging show no acute concerns or changes; patient is non-toxic appearing and is in no distress. Patient is appropriate for outpatient treatment and follow-up. Differential Diagnosis Differential diagnosis: Likely abdominal pain, diverticulitis, gastroenteritis and small bowel obstruction Imaging Data My impression: Images reviewed, interpreted by radiologist, agree, see report. Radiologist's impression: XR abdomen/kub 1V 09/21/2021 17:23 INDICATION: Abdom
== END 2021-09-21 17:45 | disposition home or self-care (01) ==
PROVIDERS: Emergency Provider Nurse Practitioner; PCP Family Medicine
DX: R19.7 Diarrhea, unspecified (principal); N89.8 Other specified noninflammatory disorders of vagina
CPT/HCPCS: 74018; 99213; G0463

== ENCOUNTER 2021-12-07 09:30 | Emergency (ER) | payer OTHER, SELFPAY ==
[2021-12-07 09:55] VITALS: BP 110/77; PULSE 87; RESP 16; TEMP 36.7; O2SAT 100
--- NOTE | 2021-12-07 10:00 | ED.FEMALEGU ---
HPI - Female Genitourinary General Chief complaint: Urogenital-Female Stated complaint: possible uti Time Seen by Provider: 12/07/21 10:00 Source: patient, RN notes reviewed and old records reviewed Mode of arrival: ambulatory Limitations: no limitations History of Present Illness HPI Narrative: 26-year-old female presents to the [facility] with 5 days of burning and itching with urination and in the [place] area. Was concerned for a UTI Or a yeast infection Has an appointment December 20 with [facility]. Related Data Allergies Allergy/AdvReac Type Severity Reaction Status Date / Time latex Allergy Other Verified 12/07/21 09:58 Review of Systems Review of Systems: All systems reviewed & are unremarkable except as noted in HPI and below Constitutional: Constitutional: Reports no additional constitutional complaints, Denies chills and Denies fatigue Eyes: Eyes: Reports no additional eye complaints ENT: Reports system reviewed and no additional complaints, except as documented Cardiovascular: Cardiovascular: Reports no additional cardiovascular complaints Respiratory: Respiratory: Reports no additional respiratory complaints Gastrointestinal: Gastrointestinal: Reports no additional gastrointestinal complaints, Denies abdominal pain, Denies diarrhea, Denies nausea and Denies vomiting Genitourinary: Genitourinary: Reports as per HPI, Denies hematuria, Denies nocturia, Denies dysuria, Denies flank pain and Reports vaginal discharge Musculoskeletal: Musculoskeletal: Reports no additional musculoskeletal complaints and Denies back pain Integumentary/Breasts: Skin/Breast: Reports system reviewed and no additional complaints, except as docu Neurologic: Reports system reviewed and no additional complaints, except as documented Psychiatric: Psychiatric: Reports no additional psychiatric complaints Endocrine: Endocrine: Denies fatigue Allergic/Immunologic: Allergic/Immunologic: Reports no additional allergic/immunologic complaints PMFSH Past Medical History Medical History Herpes simplex Social History Social History Gender identity (if verbalized by the patient): Female Sexual Orientation (if Verbalized by the Patient): Straight or Heterosexual Comments At the time of my signature, I reviewed and agree with the nursing past medical, surgical, social, and family history. There is no relevant family history pertinent to the patient complaint. Exam Const: General: healthy appearing, no acute distress, alert and well nourished Nutritional Appearance: well nourished Orientation/consciousness: patient oriented x3 Limitations: no limitations HENMT: Head: normal to inspection Ears: external ears normal Eyes: Conjunctivae: conjunctivae normal Pupils: Equal, round and reactive pupils present Neck: Neck: normal visual inspection, no lymphadenopathy and no meningeal signs Chest: Chest palpation & inspection: normal inspection of the chest and abnormal inspection of the chest Resp: Effort & Inspection: normal respiratory effort Auscultation: clear to auscultation bilaterally Cardio: Rate: regular rate Rhythm: regular rhythm GI: GI Palp: Yes Soft to palpation and No Tenderness to palpation present (GI) : General: Yes no CVA tenderness Other: Patient declined a pelvic exam. Back/Spine/Pelvis: Back: no CVA tenderness Skin: General skin exam: normal color Rashes: no rashes Wounds: no wounds Neuro: General: patient oriented x3, moves all extremities, no meningeal signs and no focal motor deficits Cranial nerves: Yes Equal, round and reactive pupils present Speech: normal speech Gait exam (Neuro): Normal gait present Extrem: General: normal to inspection Psych: Appearance: grossly normal and well kempt Mental Status: mental status grossly normal Affect: normal affect Attitude
== END 2021-12-07 10:20 | disposition home or self-care (01) ==
PROVIDERS: Emergency Provider Nurse Practitioner; PCP Family Medicine
DX: B37.9 Candidiasis, unspecified (principal); Z86.19 Personal history of other infectious and parasitic diseases
CPT/HCPCS: 81003; 99213; G0463

== ENCOUNTER 2022-01-29 18:02 | Emergency (ER) | payer OTHER, SELFPAY ==
[2022-01-29 18:12] VITALS: BP 129/75; PULSE 104; RESP 16; TEMP 36.7; O2SAT 100
--- NOTE | 2022-01-29 19:04 | ED.GENADULT ---
HPI - General Adult General Chief complaint: Headache Stated complaint: Headache, Shaking Source: patient Mode of arrival: ambulatory Limitations: no limitations History of Present Illness HPI narrative: PATIENT PRESENTS FOR EVALUATION OF HEADACHE THAT STARTED AT 4:30 P.M. TODAY. SHE HAS A HISTORY OF MIGRAINES AND THIS FEELS SIMILAR. PAIN IS IN HER OCCIPITAL REGION BUT IS SHOOTING THROUGH THE PARIETAL REGIONS. SHE STATES PAIN IS THROBBING, RATED 3/10 SEVERITY. SHE DENIES PHOTOPHOBIA, PHONOPHOBIA AND NAUSEA. SHE HAS FIORICET AT HOME WHICH USUALLY WORKS. SHE HAS RECEIVED TORADOL IN THE PAST WHICH ALSO HELPS. NO ADDITIONAL COMPLAINTS OR CONCERNS Related Data Home Medications Medication Instructions Recorded Confirmed [id number]-pzjhzghgmqvdn-vdeugerg 1 cap PO Q4-6H 01/29/22 01/29/22 50 mg-325 mg-40 mg capsule Allergies Allergy/AdvReac Type Severity Reaction Status Date / Time latex Allergy Other Verified 01/29/22 18:15 Review of Systems Review of Systems: CONSTITUTIONAL: DENIES FEVER, CHILLS, OR SWEATS. EYES: DENIES VISUAL CHANGES, REDNESS, OR DISCHARGE. ENT: DENIES RHINORRHEA, CONGESTION, SORE THROAT, OR OTALGIA. CARDIOVASCULAR: DENIES CHEST PAIN, PALPITATIONS, OR EDEMA. RESPIRATORY: DENIES COUGH OR DYSPNEA. GASTROINTESTINAL: DENIES ABDOMINAL PAIN, NAUSEA, VOMITING, OR DIARRHEA. GENITOURINARY: DENIES DYSURIA OR HEMATURIA. SKIN: DENIES RASH OR ITCHING. MUSCULOSKELETAL: DENIES BACK PAIN, JOINT PAIN, OR MYALGIA. NEUROLOGIC: REPORTS HEADACHE. DENIES NUMBNESS, DIZZINESS, OR WEAKNESS. PSYCHIATRIC: DENIES ANXIETY OR DEPRESSION. [facility] Past Medical History Medical History (Updated 01/29/22 @ 19:41 by RADHA Spain, FOR[place]) Herpes simplex Migraines Surgical History Surgical History No pertinent past surgical history Family History Family History Mother Family history non-contributory Social History Social History Smoking status: Never smoker Alcohol intake: never Substance use: never Gender identity (if verbalized by the patient): Female Sexual Orientation (if Verbalized by the Patient): Straight or Heterosexual Spiritual care concerns: No Exam Narrative: GENERAL: WELL-APPEARING, WELL-NOURISHED, AND IN NO ACUTE DISTRESS. HEAD: NORMOCEPHALIC, ATRAUMATIC. EYES: PERRLA AND EOMI. ENT: NARES CLEAR, NO RHINORRHEA OR EPISTAXIS. MUCOUS MEMBRANES MOIST. OROPHARYNX WITHOUT TONSILLAR HYPERTROPHY EXUDATE OR OTHER LESIONS. BILATERAL TMS PEARLY MARQUEZ NONBULGING NECK: SUPPLE. NO ADENOPATHY OR MASSES. NO CAROTID BRUITS OR JVD CHEST: CLEAR TO AUSCULTATION. NO RESPIRATORY DISTRESS. NO WHEEZES RALES OR RHONCHI HEART: REGULAR RATE AND RHYTHM. NO MURMUR HEARD. NORMAL PERIPHERAL PULSES. ABDOMEN: SOFT, NONTENDER, NONDISTENDED, NORMAL ACTIVE BOWEL SOUNDS. EXTREMITIES: NORMAL RANGE OF MOTION. NO EDEMA. SKIN: WARM, DRY, NO RASH. NEURO: NO FOCAL DEFICITS. ALERT AND ORIENTED X3. NORMAL [id number] EXAM. ABLE TO PERFORM RAPID ALTERNATING MOVEMENTS WITHOUT DIFFICULTY. COMPREHENSIVE NEUROLOGICAL EXAM INTACT. PSYCH: NORMAL MOOD AND AFFECT. Course Course Emergency Course: THIS IS A 26-YEAR-OLD FEMALE WHO PRESENTED FOR EVALUATION OF MIGRAINE HEADACHE CONSISTENT WITH NORMAL MIGRAINE PATTERN. GIVEN TORADOL. PAIN IMPROVED. NEUROLOGICALLY INTACT. FOLLOW-UP WITH PRIMARY THIS COMING WEEK. GO TO THE ER FOR WORSENING SYMPTOMS. PATIENT IN AGREEMENT WITH PLAN OF CARE. Level of Care: Express Care Visit Vital Signs Vital signs: Vital Signs Temperature 36.7 C 01/29/22 18:12 Pulse Rate 104 H 01/29/22 18:12 Respiratory Rate 16 01/29/22 18:12 Blood Pressure 129/75 01/29/22 18:12 Pulse Oximetry 100 01/29/22 18:12 Oxygen Delivery Room Air 01/29/22 18:12 Temperature 36.7 C 01/29/22 18:12 Pulse Rate 104
[2022-01-29] MEDS: KETOROLAC (*BKC) 60 MG/2 ML VIAL IM (19:12)
== END 2022-01-29 19:43 | disposition home or self-care (01) ==
PROVIDERS: Emergency Provider Nurse Practitioner; PCP Family Medicine
DX: G43.909 Migraine, unspecified, not intractable, without status migrainosus (principal)
CPT/HCPCS: 96372; 99213; G0463; J1885

== ENCOUNTER 2022-02-11 10:08 | Emergency (ER) | payer OTHER, SELFPAY ==
--- NOTE | ~2022-02-11 | US_ITS ---
Pelvic ultrasound. Clinical History: Vaginal bleeding, pelvic pain Technique: Realtime transabdominal and transvaginal scanning of the pelvis was performed. Color flow Doppler and Doppler spectral analysis were performed. Findings: The uterus is anteverted. The endometrial stripe has a thickness of less than 3 mm. No foc al mass is identified. The right ovary measures 2.4 x 3.6 x 1.9 cm. Simple right ovarian cysts are present. The left ovary measures 1.3 x 1.6 x 3.0 centimeters. Simple left ovarian cysts noted. Probable vascular flow present in both ovaries on Doppler spectral analysis. There is no evidence of free fluid in the cul de sac. Impression: No significant abnormality. Small simple bilateral ovarian cysts are of doubtful clinical significanc e. Reviewed, dictated and finalized at [facility]. ER TRAP Impression: No significant abnormality. Small simple bilateral ovarian cysts are of doubtfu l clinical significance.
[2022-02-11 10:20] VITALS: BP 130/76; PULSE 94; RESP 16; TEMP 36.8; O2SAT 97
[2022-02-11 12:15] VITALS: BP 122/73; PULSE 98; RESP 16; TEMP 37.2; O2SAT 100
[2022-02-11 14:14] VITALS: BP 124/88; PULSE 96; RESP 16; O2SAT 100
--- NOTE | 2022-02-11 14:26 | ED.FEMALEGU ---
HPI - Female Genitourinary General Chief complaint: Vaginal Bleeding Stated complaint: Abdominal pain that radiates/vag bleeding Time Seen by Provider: 02/11/22 13:46 History of Present Illness HPI Narrative: 26-year-old female here for evaluation of vaginal bleeding and lower abdominal pain over the past day. Patient had a colposcopy 7 days ago for abnormal cells seen in a Pap. States that she was doing well postop but she had vaginal intercourse last night and began to bleed shortly afterwards. States that she has bled through a pad every 2 hours and reports lower abdominal cramping. Denies syncope, lightheadedness, nausea, vomiting, fevers or chills. Spoke with [facility]'s [place] who recommended ED eval. Related Data Home Medications Medication Instructions Recorded Confirmed vftglulsvl-fbfwhotsdyuqb-znpmigdj 1 cap PO Q4-6H 01/29/22 01/29/22 50 mg-325 mg-40 mg capsule Allergies Allergy/AdvReac Type Severity Reaction Status Date / Time latex Allergy Other Verified 02/11/22 13:47 Review of Systems Review of Systems: Gen: Denies fevers or chills Eyes: Denies eye pain or visual change ENT: Denies congestion Respiratory: Denies shortness of breath or cough CV: Denies chest pain or palpitations GI: Denies abdominal pain nausea, emesis or diarrhea : Reports vaginal bleeding and lower pelvic pain. Musculoskeletal: Denies back pain or muscle pain Neuro: Denies numbness, tingling, weakness or focal weakness Skin: Denies rash Except as documented, all other systems reviewed and negative [facility] Past Medical History Medical History Herpes simplex Migraines Surgical History Surgical History No pertinent past surgical history Family History Family History Mother Family history non-contributory Social History Social History Smoking status: Never smoker Alcohol intake: never Substance use: never Gender identity (if verbalized by the patient): Female Sexual Orientation (if Verbalized by the Patient): Straight or Heterosexual Spiritual care concerns: No Exam Narrative: APPEARANCE: Well appearing, no pain in distress, well-nourished. Head: Normocephalic and atraumatic. EYES: PERRLA/EOMI, conjunctivae clear NOSE: No nasal drainage EARS: External ear normal in appearance THROAT: Oropharynx is clear. Mucous membranes are moist. NECK: Supple. No adenopathy, no masses. RESPIRATORY: Airway patent, respirations nonlabored. Clear to auscultation bilaterally, no rales, rhonchi, wheezing. CARDIOVASCULAR: Regular rate and rhythm without murmurs, rubs, or gallops. : Exam performed with route clerk Annmarie. Post colposcopy changes to cervix. Scant amount of bleeding from the site. ABDOMINAL: Normoactive bowel sounds. Soft, nontender, nondistended. No rebound tenderness or guarding. MUSCULOSKELETAL: Extremities are warm and well-perfused. Moves all extremities well. No edema. NEURO: Normal speech. No focal neurologic deficits. SKIN: Skin is warm and dry. No rashes. PSYCHIATRIC: Normal affect/mood. Course Vital Signs Vital signs: Vital Signs Temperature 98.3 F 02/11/22 10:20 Pulse Rate 94 02/11/22 10:20 Respiratory Rate 16 02/11/22 10:20 Blood Pressure 130/76 02/11/22 10:20 Pulse Oximetry 97 02/11/22 10:20 Oxygen Delivery Room Air 02/11/22 10:20 Temperature 98.9 F 02/11/22 12:15 Pulse Rate 82 02/11/22 16:05 Respiratory Rate 14 02/11/22 16:05 Blood Pressure 132/84 02/11/22 16:05 Pulse Oximetry 99 02/11/22 16:05 Oxygen Delivery Room Air 02/11/22 10:20 MDM - Female Genitourinary MDM Narrative Medical decision making narrative: 26-year-old female here for evaluation of vaginal bleeding and abdominal cramping
[2022-02-11 14:52] LABS: Basophils Percent Auto 0.3 % (0.2-1.2); Eosinophils Absolute Auto 0.1 K/mm3 (0-0.3); Eosinophils Percent Auto 1.9 % (0-4.4); Hemoglobin 14.4 g/dL (12.0-15.0); Immature Granulocyte Absolute 0.02 K/mm3 (0.00-0.031); Immature Granulocyte Percent A 0.3 % (0-0.5); Lymphocytes Percent Auto 29.8 % (18.3-44.2); Mean Corpuscular HGB Conc 35.1 g/dl (32-36); Mean Corpuscular Hemoglobin 30.9 pg (26-34); Mean Platelet Volume 9.3 fl (7.4-10.4); Monocytes Absolute Auto 0.4 K/mm3 (0.1-0.6); Monocytes Percent Auto 6.4 % (2.6-8.5); Neutrophils Absolute Auto 3.9 K/mm3 (1.3-6.7); Neutrophils Percent Auto 61.3 % (45.5-73.1); Platelet Count Result 245 k/mm3 (150-375); Red Blood Count 4.66 M/mm3 (4.2-5.4); Red Cell Distribution Width 12.3 % (11.5-14.5); White Blood Count 6.4 K/mm3 (4.5-10.0)
[2022-02-11 15:01] LABS: Add Urine Microscopic? YES; Appearance Urine Slightly Cloudy (Clear); Bilirubin Urine Negative (Negative); Blood Urine 3+ (Negative); Color Urine Yellow (Yellow); Glucose Urine UA Negative (Negative); Ketones Urine Negative (Negative); Leukocyte Esterase Ur Negative LEU/UL (Negative); Nitrate Urine Negative (Negative); Protein Urine Negative (Negative); Specific Grav Ur 1.025 (1.001-1.035); Urobilinogen Urine 0.2 mg/dL (<2.0); pH Urine 6.5 (5.0-9.0)
[2022-02-11 15:06] LABS: Alanine Aminotransferase 25 U/L (6-35); Albumin Level 4.5 g/dL (3.5-5.1); Alkaline Phosphatase 42 U/L (38-126); Anion Gap 7 mmol/L (8-16); Aspartate Amino Transferase 30 U/L (14-36); Bilirubin,Total 0.8 mg/dL (0.2-1.3); Blood Urea Nitrogen 13 mg/dL (7-17); Calcium 8.3 mg/dL (8.4-10.2); Carbon Dioxide 26 mmol/L (22-30); Chloride 103 mmol/L (98-107); Estimated CRCL calculation 105 ml/min; Estimated Glomerular Filt Rate > 60; Glucose 89 mg/dL (65-110); Potassium 3.4 mmol/L (3.4-5.0); Sodium 136 mmol/L (137-145)
[2022-02-11 15:13] LABS: Mucus Urine Moderate /lpf; RBC Urine >75 /hpf (0-2); Squamous Epithelial Cell Urine Few /hpf (Few)
[2022-02-11 15:21] LABS: Beta HCG Quantitative < 2.39 mIU/ML
[2022-02-11] MEDS: HYDROcodone/acetaminophen (*CRX) 5-325 MG TABLET 1 TAB PO (15:32)
[2022-02-11 16:05] VITALS: BP 132/84; PULSE 82; RESP 14; O2SAT 99
[2022-02-11] MEDS: KETOROLAC 30 MG/ML VIAL (*BKC) IM (16:21)
== END 2022-02-11 16:25 | disposition home or self-care (01) ==
PROVIDERS: Emergency Provider Physician Assistant; PCP Family Medicine
DX: N99.820 Postprocedural hemorrhage of a genitourinary system organ or structure following a genitourinary system procedure (principal)
CPT/HCPCS: 36415; 76830; 76856; 80053; 81001; 84702; 85025; 96372; 99284; A9270; J1885

== ENCOUNTER 2022-03-13 09:06 | Emergency (ER) | payer OTHER, SELFPAY ==
--- NOTE | 2022-03-13 09:09 | ED.FEMALEGU ---
HPI - Female Genitourinary General Stated complaint: UTI Time Seen by Provider: 03/13/22 09:09 Source: patient Mode of arrival: ambulatory Limitations: no limitations History of Present Illness HPI Narrative: Colleen is a 26-year-old female patient presenting to the clinic today with complaints of possible urinary tract infection. She reports her symptoms started with flank pain and burning with urination this morning at around 7:00 a.m.. Does have a history of kidney stones in the past. States that right flank pain is worse than the left flank. States she was doubled over at work due to the pain. Currently reports her pain 5/10 and is pretty constant. Related Data Home Medications Medication Instructions Recorded Confirmed knvxmfltxa-zlpwtjbdexnnx-pgfggibo 1 cap PO Q4-6H 01/29/22 01/29/22 50 mg-325 mg-40 mg capsule valacyclovir 500 mg tablet 500 mg PO DAILY 03/13/22 03/13/22 Allergies Allergy/AdvReac Type Severity Reaction Status Date / Time latex Allergy Other Verified 03/13/22 09:16 Review of Systems Review of Systems: Pertinent positives per HPI. Patient denies any fever, chills, rash, headache, visual changes, dizziness, cough, runny nose, sore throat, shortness of breath, chest pain, palpitations, nausea, vomiting, diarrhea, or constipation PMFSH Past Medical History Medical History Herpes simplex Migraines Surgical History Surgical History No pertinent past surgical history Family History Family History Mother Family history non-contributory Social History Social History Smoking status: Never smoker Alcohol intake: never Substance use: never Gender identity (if verbalized by the patient): Female Sexual Orientation (if Verbalized by the Patient): Straight or Heterosexual Spiritual care concerns: No Comments At the time of my signature, I reviewed and agree with the nursing past medical, surgical, social, and family history. There is no relevant family history pertinent to the patient complaint. Exam Narrative: General: Well-developed, well nourished, in no apparent distress. Head: Normocephalic, atraumatic. Cardio: Regular rate and rhythm, s1 and s2 normal, no murmur appreciated. Resp: Clear to auscultation bilaterally, no rhonchi, rales, wheezing or rubs. Abdomen: Soft, pliable, bowel sounds present in all quadrants, tender to palpation over lower abdomen, no organomegly, + CVAT tenderness bilaterally right greater than left. Course Course Emergency Course: Portions of this record may have been created with voice recognition software. Level of Care: Express Care Visit Vital Signs Vital signs: Vital signs reviewed MDM - Female Genitourinary MDM Narrative Medical decision making narrative: At the time of visit patient is resting on exam table. rating her pain 5/10 currently. UA has 3+ blood and urine with a history of kidney stones. Reports bilateral flank plain right greater than left. recommend transfer to the ED for further evaluation of ureteral stone. Contacted Dr. Morales at [place] emergency room and he accepts patient for transfer. Patient agrees to transfer. Differential Diagnosis Differential diagnosis: Likely urinary tract infection, cystitis and other ( Flank pain, ureterolithiasis) Discharge Plan Discharge Clinical Impression: Acute flank pain, Bilateral lower abdominal pain, History of kidney stones Hematuria Qualifiers: Hematuria type: unspecified type Qualified Code(s): R31.9 - Hematuria, unspecified Patient Disposition: Acute Care Hospital Condition: Stable Prescriptions: No Action rjssumitbq-xyzrhfhcphfjg-zxuy 50-325-40 mg Capsule 1 cap PO Q4-6H Follow-up/Referrals: [place]
[2022-03-13 09:23] VITALS: BP 116/82; PULSE 90; RESP 16; TEMP 36.7; O2SAT 99
== END 2022-03-13 09:30 | disposition short-term general hospital (02) ==
PROVIDERS: Emergency Provider Nurse Practitioner Family; PCP Family Medicine
DX: R10.31 Right lower quadrant pain (principal); R10.32 Left lower quadrant pain; R31.9 Hematuria, unspecified; Z87.442 Personal history of urinary calculi
CPT/HCPCS: 81003; 99212; G0463

== ENCOUNTER 2022-03-13 10:11 | Emergency (ER) | payer OTHER, SELFPAY ==
--- NOTE | ~2022-03-13 | CT_ITS ---
EXAMINATION: CT abdomen pelvis w con DATE: 03/13/2022 13:53 INDICATION: Right abdominal/flank pain. TECHNIQUE: Computed tomography (CT) of the abdomen and pelvis was performed with 100 mL Omnipaque-350 intravenous contrast. Automated exposure control and iterative reconstruction technique were employe d. The dose-length product was 379.82 mGy-cm. COMPARISON: None FINDINGS: Minimal dependent atelectasis in the bilateral lower lobes. Heart size is normal. No pericardial or p leural effusion. Mild focal hepatic steatosis at the ligamentum teres. Gallbladder, spleen, pancreas, bilateral adrenal glands and left kidney are normal. 6 mm low-attenuation cyst at the upper pole of the right kidney. No hydroureteronephrosis or evident stones along the course of the ureters. No pa l obstruction. Appendix not visualized and there postoperative changes in the tip the cecum suggestin g prior appendectomy. No pericecal inflammatory stranding to suggest acute appendicitis. 1.8 cm right ovarian cyst/follicle. Uterus and bladder and left adnexa are unremarkable. No free intraperitoneal gas or fluid. No pathologically enlarged abdominal or pelvic lymphadenopathy. Bones are unremarkable. IMPRESSION: 1. No acute intra-abdominal/pelvic process. Reviewed, dictated and finalized at location A. [employer]
[2022-03-13 10:44] VITALS: BP 117/88; PULSE 79; RESP 14; TEMP 36.4; O2SAT 100
[2022-03-13 10:53] LABS: Basophils Percent Auto 0.3 % (0.2-1.2); Eosinophils Absolute Auto 0.1 K/mm3 (0-0.3); Eosinophils Percent Auto 1.1 % (0-4.4); Hematocrit 42.1 % (37.0-47.0); Immature Granulocyte Absolute 0.03 K/mm3 (0.00-0.031); Immature Granulocyte Percent A 0.4 % (0-0.5); Lymphocytes Absolute Auto 2.23 K/mm3 (0.9-3.2); Mean Corpuscular HGB Conc 35.6 g/dl (32-36); Mean Corpuscular Hemoglobin 31.5 pg (26-34); Mean Corpuscular Volume 88.4 fl (80-100); Mean Platelet Volume 9.2 fl (7.4-10.4); Monocytes Absolute Auto 0.4 K/mm3 (0.1-0.6); Monocytes Percent Auto 4.6 % (2.6-8.5); Neutrophils Absolute Auto 5.2 K/mm3 (1.3-6.7); Neutrophils Percent Auto 65.6 % (45.5-73.1); Platelet Count Result 260 k/mm3 (150-375); Red Blood Count 4.76 M/mm3 (4.2-5.4)
[2022-03-13 10:59] LABS: Alanine Aminotransferase 21 U/L (6-35); Albumin Level 4.7 g/dL (3.5-5.1); Alkaline Phosphatase 52 U/L (38-126); Anion Gap 8 mmol/L (8-16); Aspartate Amino Transferase 24 U/L (14-36); Bilirubin,Total 0.8 mg/dL (0.2-1.3); Blood Urea Nitrogen 11 mg/dL (7-17); Calcium 8.5 mg/dL (8.4-10.2); Carbon Dioxide 25 mmol/L (22-30); Chloride 105 mmol/L (98-107); Estimated CRCL calculation 105 ml/min; Estimated Glomerular Filt Rate > 60; Glucose 78 mg/dL (65-110); Potassium 4.1 mmol/L (3.4-5.0); Sodium 138 mmol/L (137-145)
[2022-03-13 11:12] LABS: Appearance Urine Clear (Clear); Bilirubin Urine Negative (Negative); Blood Urine 2+ (Negative); Color Urine Yellow (Yellow); Glucose Urine UA Negative (Negative); Ketones Urine Negative (Negative); Leukocyte Esterase Ur Negative LEU/UL (Negative); Nitrate Urine Negative (Negative); Protein Urine Negative (Negative); Specific Grav Ur 1.015 (1.001-1.035); Urobilinogen Urine 0.2 mg/dL (<2.0)
[2022-03-13 11:17] LABS: Bacteria Urine Trace /hpf; Mucus Urine Rare /lpf; RBC Urine 0-2 /hpf (0-2); Squamous Epithelial Cell Urine Rare /hpf (Few); WBC Urine 0-3 /hpf
[2022-03-13 11:27] LABS: Add Urine Microscopic? YES
--- NOTE | 2022-03-13 13:24 | ED.GENADULT ---
HPI - General Adult General Chief complaint: Back Pain/Injury Stated complaint: flank pain Time Seen by Provider: 03/13/22 12:26 Source: patient and family Mode of arrival: ambulatory Limitations: no limitations History of Present Illness HPI narrative: 26 years old white female presented to the ED with sudden onset of pain on the right flank area going right abdomen started at 7 AM. Sharp, better when she takes position, worse on standing and walking associated with nausea. She denies any fever, chills, vomiting, diarrhea, constipation or urinary symptoms. Patient denies vaginal bleeding or discharge as well. History of appendectomy. She drinks occasionally. Related Data Home Medications Medication Instructions Recorded Confirmed [id number] 1 cap PO Q4-6H 01/29/22 03/13/22 50 mg-325 mg-40 mg capsule norethindrone acetate 5 mg tablet 5 mg PO TID 03/13/22 03/13/22 valacyclovir 500 mg tablet 500 mg PO DAILY 03/13/22 03/13/22 Allergies Allergy/AdvReac Type Severity Reaction Status Date / Time latex Allergy Other Verified 03/13/22 11:08 Review of Systems Review of Systems: All systems reviewed & are unremarkable except as noted in HPI and below PMFSH Past Medical History Medical History Herpes simplex Migraines Surgical History Surgical History No pertinent past surgical history Family History Family History Mother Family history non-contributory Social History Social History Smoking status: Never smoker Alcohol intake: never Substance use: never Gender identity (if verbalized by the patient): Female Sexual Orientation (if Verbalized by the Patient): Straight or Heterosexual Spiritual care concerns: No Exam Narrative: General appearance: Well-developed, well-nourished Skin: Normal color Head: Normocephalic, nontraumatic Eyes: Clear conjunctiva ENT: Oropharynx normal, ears normal, nose normal Neck: Supple, nontender Chest and respiratory: Airway patent, no respiratory distress, no accessory muscle use Heart: Regular rate/rhythm Abdomen: Diffuse tenderness to right abdomen, right flank, no bruises, no swelling or rash Vascular: Normal peripheral pulses, normal capillary refill. Musculoskeletal: Normal range of motion, nontender back Neurologic: Alert and oriented ?3, [employer] is normal as tested, no gross motor deficit Course Vital Signs Vital signs: Vital Signs Temperature 36.4 C L 03/13/22 10:44 Pulse Rate 79 03/13/22 10:44 Respiratory Rate 14 03/13/22 10:44 Blood Pressure 117/88 03/13/22 10:44 Pulse Oximetry 100 03/13/22 10:44 Oxygen Delivery Room Air 03/13/22 10:44 Temperature 36.4 C L 03/13/22 10:44 Pulse Rate 79 03/13/22 10:44 Respiratory Rate 14 03/13/22 10:44 Blood Pressure 117/88 03/13/22 10:44 Pulse Oximetry 100 03/13/22 10:44 Oxygen Delivery Room Air 03/13/22 10:44 Medical Decision Making MDM Narrative Medical decision making narrative: Patient is 26 years old white female presents with right flank pain that started redye hand today, worse with standing, better in position, associated with nausea. Physical examination showed diffuse tenderness right lower back and the flank area. Musculoskeletal, kidney stone, pyelonephritis, cholecystitis are my concern. Labs, CT abdomen pelvis with IV contrast showed no significant abnormalities. Musculoskeletal pain is my concern at this time. Patient requested to be off
[2022-03-13] MEDS: HYDROmorphone HCL INJ (*CRX) 1 MG/ML SYR 0.5 MG IV PUSH (13:35)
[2022-03-13] MEDS: SODIUM CHLORIDE 0.9% IV 1,000 ML 999 ML IV CONT (13:35)
[2022-03-13] MEDS: ONDANSETRON INJ 4 MG/2 ML VIAL IV PUSH (13:35)
== END 2022-03-13 14:42 | disposition home or self-care (01) ==
PROVIDERS: Family Medicine; Emergency Provider Emergency Medicine; PCP Family Medicine
DX: R10.9 Unspecified abdominal pain (principal)
CPT/HCPCS: 36415; 74177; 80053; 81001; 81025; 85025; 96361; 96374; 96375; 99284; J1170; J2405; J7030; Q9967

== ENCOUNTER 2022-05-20 14:59 | Emergency (ER) | payer OTHER, SELFPAY ==
[2022-05-20 15:12] VITALS: BP 122/64; PULSE 85; RESP 16; TEMP 37.1; O2SAT 99
--- NOTE | 2022-05-20 15:29 | ED.NAVMDI ---
HPI - Nausea/Vomiting/Diarrhea General Chief complaint: Nausea/Vomiting/Diarrhea Stated complaint: Nausea/Vomiting/Cramping Time Seen by Provider: 05/20/22 15:29 Source: patient and RN notes reviewed Mode of arrival: ambulatory Limitations: no limitations History of Present Illness HPI Narrative: 26 y/o female presented for c/o severe episode of lower abdominal cramping today. States she became nauseated and had dry heaves just prior to the severe cramping, then had syncopal episode causing her to strike the bridge of her nose on a metal bar in the bathroom. States she was unconscious maybe a few seconds. Rates abdominal pain 05/03. Endorses starting menses today, states she has never had menstrual cramps. LMP 04/24-04/27. Trying to conceive. Denies vomiting, diarrhea, cp, palpitations, sob, fever/chills. No treatment for nose bruising. No meds for pain today. Related Data Home Medications Medication Instructions Recorded Confirmed No Home Medications 05/20/22 05/20/22 Allergies Allergy/AdvReac Type Severity Reaction Status Date / Time latex Allergy Other Verified 05/20/22 15:03 Review of Systems Review of Systems: CONSTITUTIONAL: Denies body aches, fever, chills ENT: Denies epistaxis, rhinorrhea, congestion CARDIOVASCULAR: Denies chest pain, palpitations, or edema. RESPIRATORY: Denies cough or dyspnea. GASTROINTESTINAL: Endorses abdominal pain, nausea Denies vomiting, diarrhea hematochezia, melena GENITOURINARY: Denies dysuria, hematuria, or CVA tenderness. SKIN: Denies rash, itching, or wounds. MUSCULOSKELETAL: Denies back pain, joint pain, or myalgia. NEUROLOGIC: Denies headache, numbness, tingling, or weakness. All systems reviewed & are unremarkable except as noted in HPI and below PMFSH Past Medical History Medical History Herpes simplex Migraines Surgical History Surgical History No pertinent past surgical history Family History Family History Mother Family history non-contributory Social History Social History Smoking status: Never smoker Alcohol intake: never Substance use: never Gender identity (if verbalized by the patient): Female Sexual Orientation (if Verbalized by the Patient): Straight or Heterosexual Spiritual care concerns: No Comments At time of signature, I have reviewed and agree with nursing past medical, surgical, social and family history unless otherwise noted. Please see nursing chart for further information. There is no relevant family history pertinent to the presenting complaint Exam Narrative: GENERAL: Well-appearing, and in no acute distress. EYES: EOMI. Conjunctivae normal. ENT: Mucous membranes pink and moist. CHEST: No respiratory distress. Clear to auscultation. HEART: Regular rate and rhythm. No murmur appreciated. Normal peripheral pulses. ABDOMEN: abd soft, nondistended, normal active bowel sounds. diffusely tender abdomen, worse at RLQ; Mild guarding, No rebound tenderness, asymmetry EXTREMITIES: Normal range of motion. No edema. SKIN: Warm, dry, no rash. Capillary refill normal. Normal skin turgor. NEURO: No focal deficits. Alert and oriented x3. PSYCH: Normal affect. Course Course Emergency Course: Patient is aware of diagnosis, understands and agrees to treatment plan. Anticipatory guidance given. Portions of this record may have been created with voice recognition software Level of Care: Express Care Visit Vital Signs Vital signs: Vital Signs Temperature 98.8 F 05/20/22 15:12 Pulse Rate 85 05/20/22 15:12 Respiratory Rate 16 05/20/22 15:12 Blood Pressure 122/64 05/20/22 15:12 Pulse Oximetry 99 05/20/22 15:12 Oxygen Delivery Room Air 05/20/22 15:12 Temperature 98.8 F 05/20
== END 2022-05-20 16:03 | disposition home or self-care (01) ==
PROVIDERS: Emergency Provider Nurse Practitioner Family; PCP Family Medicine
DX: R10.31 Right lower quadrant pain (principal)
CPT/HCPCS: 81003; 81025; 99212; G0463

== ENCOUNTER 2022-05-21 04:28 | Emergency (ER) | payer OTHER, SELFPAY ==
--- NOTE | ~2022-05-21 | CT_ITS ---
EXAMINATION: CT facial bones wo con DATE: 05/21/2022 07:50 INDICATION: Face injury. TECHNIQUE: Computed tomography (CT) of the facial bones and maxillofacial region was performed withou t intravenous contrast. Automated exposure control and iterative reconstruction technique were employ ed. The dose-length product was 282.77 mGy-cm. COMPARISON: None. FINDINGS: There is rightward deviation of the nasal septum. No fracture. There is minimal mucosal thi ckening in left maxillary sinus. The mastoid air cells are normal. IMPRESSION: 1. No fracture. Reviewed, dictated and finalized at location A. IMPRESSION: 1. No fracture.
--- NOTE | ~2022-05-21 | CT_ITS ---
EXAMINATION: CT brain wo con DATE: 05/21/2022 07:50 INDICATION: Head injury. TECHNIQUE: Computed tomography (CT) of the head was performed without intravenous contrast. The mA wa s adjusted according to patient size. Iterative reconstruction technique was employed. The dose-lengt h product was 605.33 mGy-cm. COMPARISON: Brain MRI 04/07/2020 FINDINGS: There is no intracranial hemorrhage, acute infarction, or abnormal intracranial mass lesion . The ventricles are normal in size. The orbits are normal. The paranasal sinuses are clear. The mast oid air cells are normal. IMPRESSION: 1. Normal brain. Reviewed, dictated and finalized at location A. IMPRESSION: 1. Normal brain.
[2022-05-21 04:32] VITALS: BP 128/75; PULSE 94; RESP 18; TEMP 36.6; O2SAT 100
--- NOTE | 2022-05-21 07:25 | ED.HEATRA ---
HPI - Head Injury General Chief complaint: Unspecified Stated complaint: nose injury Time Seen by Provider: 05/21/22 07:22 Source: patient Mode of arrival: ambulatory Limitations: no limitations History of Present Illness HPI Narrative: 26 years old white female started her period yesterday with more cramps than usual associated with nausea. Patient drove herself to the emergency room, currently feeling suprapubic cramps. Does not take medicine at home, she report hitting her nose at work with a metal shelf then fell and blacked out for a couple of second. Yesterday. She reported having headache immediately but denies any nosebleed. Related Data Home Medications Medication Instructions Recorded Confirmed No Home Medications 05/20/22 05/20/22 Allergies Allergy/AdvReac Type Severity Reaction Status Date / Time latex Allergy Other Verified 05/21/22 04:38 Review of Systems Review of Systems: All systems reviewed & are unremarkable except as noted in HPI and below PMFSH Past Medical History Medical History Herpes simplex Migraines Surgical History Surgical History No pertinent past surgical history Family History Family History Mother Family history non-contributory Social History Social History Smoking status: Never smoker Alcohol intake: never Substance use: never Gender identity (if verbalized by the patient): Female Sexual Orientation (if Verbalized by the Patient): Straight or Heterosexual Spiritual care concerns: No Exam Narrative: General appearance: Well-developed, well-nourished Skin: Normal color Head: Normocephalic, nontraumatic Eyes: Clear conjunctiva ENT: Oropharynx normal, ears normal, nose normal slight bruise across the nasal bridge Neck: Supple, nontender Chest and respiratory: Airway patent, no respiratory distress, no accessory muscle use Heart: Regular rate/rhythm Abdomen: Soft, slight suprapubic tenderness, no organomegaly, quiet bowel sounds Vascular: Normal peripheral pulses, normal capillary refill. 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 Work-up today showed normal CBC, normal CMP, normal urine, normal CT facial bones and CT head. Patient received 600 mg of ibuprofen orally and 1 g of Tylenol orally with good improvement. The pt was discharged to home.the pt,s condition upon discharge was fair,education was provided to the pt in reference to the final impression,discharge study results,treatment,prognosis and need for follow up . Differential Diagnosis Differential diagnosis: Likely closed head injury and other (Nasal bone fracture, dysmenorrhea) Lab Data 05/21/22 09:14 Labs: Lab Results 05/21/22 05/21/22 Range/Units 09:14 09:14 WBC 8.6 (4.5-10.0) K/mm3 RBC 4.52 (4.2-5.4) M/mm3 Hgb 1
[2022-05-21] MEDS: ACETAMINOPHEN 500 MG TABLET 1000 MG PO (08:14)
[2022-05-21] MEDS: IBUPROFEN 600 MG TABLET PO (08:14)
[2022-05-21 09:00] VITALS: BP 122/83; PULSE 87; RESP 16; O2SAT 100
[2022-05-21 09:44] LABS: Basophils Percent Auto 0.3 % (0.2-1.2); Eosinophils Absolute Auto 0.1 K/mm3 (0-0.3); Eosinophils Percent Auto 1.2 % (0-4.4); Hematocrit 40.3 % (37.0-47.0); Hemoglobin 14.1 g/dL (12.0-15.0); Immature Granulocyte Absolute 0.03 K/mm3 (0.00-0.031); Immature Granulocyte Percent A 0.3 % (0-0.5); Lymphocytes Absolute Auto 1.68 K/mm3 (0.9-3.2); Lymphocytes Percent Auto 19.5 % (18.3-44.2); Mean Corpuscular Hemoglobin 31.2 pg (26-34); Mean Corpuscular Volume 89.2 fl (80-100); Mean Platelet Volume 9.1 fl (7.4-10.4); Monocytes Absolute Auto 0.4 K/mm3 (0.1-0.6); Monocytes Percent Auto 4.4 % (2.6-8.5); Neutrophils Absolute Auto 6.4 K/mm3 (1.3-6.7); Neutrophils Percent Auto 74.3 % (45.5-73.1); Platelet Count Result 187 k/mm3 (150-375); Red Blood Count 4.52 M/mm3 (4.2-5.4); Red Cell Distribution Width 12.1 % (11.5-14.5); White Blood Count 8.6 K/mm3 (4.5-10.0)
[2022-05-21 10:05] LABS: Beta HCG Quantitative < 2.39 mIU/ML
[2022-05-21 10:15] VITALS: BP 121/86; PULSE 80; RESP 16; O2SAT 98
== END 2022-05-21 10:15 | disposition home or self-care (01) ==
PROVIDERS: Emergency Provider Emergency Medicine; PCP Family Medicine
DX: N94.6 Dysmenorrhea, unspecified (principal); S09.92XA Unspecified injury of nose, initial encounter; W18.09XA Striking against other object with subsequent fall, initial encounter
CPT/HCPCS: 36415; 70450; 70486; 84702; 85025; 85461; 86850; 86900; 86901; 99284; A9270